=== PATIENT | female | born 1990 | race Caucasian/White ===

== ENCOUNTER 2017-09-05 19:41 | Emergency (ER) | payer SELFPAY ==
--- NOTE | 2017-09-05 19:59 | EDPHY ---
H & P Time Seen by Provider: 09/05/17 19:49 HPI/ROS: CHIEF COMPLAINT: "Fuck you, the pigs [email or web address] get me" HISTORY OF PRESENT ILLNESS: 29-year-old female arrives via police after she was found to be uncooperative at the [place] station. She is under arrest for trespassing. She is in the emergency department for medical screening prior to incarceration. The patient is unable to provide me with information regarding to her current condition. She has flight of ideas, speaks repeatedly of topics ranging from pigs to rape to fruit salad to rainbows to bases. PRIMARY CARE PROVIDER: Unknown REVIEW OF SYSTEMS: A ten point review of systems was performed and is negative with the exception of the items mentioned in the HPI PAST MEDICAL/SURGICAL HISTORY: Unknown SOCIAL HISTORY: Unknown as patient will not answer PHYSICAL EXAM 1) GENERAL: Well-developed, well-nourished, awake alert. Noncooperative, in 4 point restraints, lunges and attempts to bite me. 2) HEAD: Normocephalic, atraumatic 3) HEENT: Pupils equal, round, reactive to light bilaterally. Negative Horners. Nasopharynx, oropharynx, clear. No deformity or angulation of nose. No septal hematoma. No rhinorrhea. No oral trauma. Ears bilaterally with normal tympanic membranes. No hemotympanum. No fluid or blood in the external auditory canal. No raccoon eyes. No Lugo sign. Teeth are normally aligned with no gross malocclusion, TMJ bilaterally nontender, facial bones nontender including the zygomatic arch, maxilla mandible. 4) NECK: No cervical collar is on. Posterior cervical spine is nontender, no stepoff, no effusion. Full range of motion which does not elicit any midline cervical spine pain, no posterior midline tenderness, no step-off. 5) LUNGS: Clear to auscultation bilaterally, no wheezes, no rhonchi, no retractions.. 6) HEART: [Regular rate and rhythm, 7) ABDOMEN: No guarding, no rebound, no focal tenderness, no peritoneal signs, no signs of trauma, no ecchymosis 8) MUSCULOSKELETAL: Left forearm vertical abrasions with no signs of infection. Moving all extremities, no focal areas of tenderness, no obvious trauma. 9) BACK: No midline vertebral tenderness, no fluctuance, no step-off, no obvious trauma, no visual or palpable abnormality. 10) SKIN: No laceration. No abrasion 11) PSYCH: Awake, alert, flight of ideas, word salad, tangential thoughts DIFFERENTIAL DIAGNOSIS: In no particular orderincluding but not limited to hypoglycemia, infectious process, electrolyte abnormality, head injury and intoxicants. (Sukh Wagner Birgit) Constitutional: Initial Vital Signs Temperature (C) 36.7 C 09/05/17 19:41 Heart Rate 120 H 09/05/17 19:41 Respiratory Rate 20 09/05/17 19:41 Blood Pressure 127/89 H 09/05/17 19:41 O2 Sat (%) 100 09/05/17 19:41 O2 Delivery Mode Room Air Allergies/Adverse Reactions: Unable to Assess Allergy (Unverified 09/05/17 19:49) Home Medications: Medication Instructions Recorded Unobtainable 09/05/17 MDM/Departure - MDM Imaging Results: Imaging Impressions Head CT 09/05/17 20:22 Impression: Normal brain. No intracranial hemorrhage, mass, or swelling. Findings discussed with Emergency Department Physician Rn Clinical Review , Aj Wagner PA-C, on at September 05, 2017 at 2159. Images reviewed myself (Sukh Wagner Birgit) Medications Given: Discontinued Medications Haloperidol Lactate (Haldol Injection) 5 mg IVP EDNOW ONE Stop: 09/05/17 20:42 Last Admin: 09/05/17 20:54 Dose: 5 mg Sodium Chloride (Ns) 1,000 mls @ 0 mls/hr IV ONCE ONE PRN Reason: Wide Open Stop: 09/05/17 22:05 Last Admin: 09/05/17 22:09 Dose: 1,000 mls Nicotine (Nicoderm Cq) 14 mg TD EDNOW ONE Stop: 09/06/17 08:47 Last Admin: 09/06/17 09:19 Dose: 14 mg ED Course/Re-evaluation: 2019 hr: Patient initially presented to the emergency department for medical screening prior to incarceration. There are no reports of trauma. We have no medical records on this patient and she initially presented as a Karla Harper with no date of . I consulted with the charge nurse and Dr. Kathy Nash. I do not feel comfortable nor do I think it is appropriate to clearing this patient for incarceration at this time as she is altered, possibly psychotic, possible drug abuse, possible head injury, possible electrolyte imbalance. She is aggressive, not answering questions appropriately. After this discussion the police placed the patient on M1 hold hold, she was brought back to room 19, placed in 4 point restraints as she is physically aggressive and has already tried to bite me. Plan will be pharmacologic intervention, laboratory studies, CT imaging of the brain for altered mental status. Both I and nursing staff attempted reassurance, calming the patient, as well as other modalities and these were unsuccessful at calming the patient. Subsequently patient was kept in 4 point restraints.Patient will be kept in 4 point restraints for safety of the patient for safety of the staff as she is verbally threatening, attempting to bite and kick. 2100 hr: Re-evaluation after IV Haldol, "Can you [place] me?" 2203 hr: Re-evaluation. She is sleeping, out of 4 point restraints at this time. At this time she is able to tell me that she has been spending the past few nights at the [facility]. She denies assault. Denies illicit drug use. Awaiting urine toxicology prior to mental health evaluation Midnight: Care turned over to Dr. Jamal Asif. Patient has yet to provide urinalysis. She has been given IV hydration. She is more calm at this time. ( Sukh Wagner) The patient was evaluated and managed by the Physician Rn Clinical Review. I discussed the patient's presentation and course with the midlevel provider with them and agree with the evaluation. My co-signature indicates that I have reviewed this chart and I agree with the findings and plan of care as documented. I am the secondary supervising physician. (Kathy Nash) 0325: Drug screen positive for cocaine. No acute events overnight. Patient has been resting. Patient remains on M1 hold for acute psychosis. 0636: Patient be evaluated swing. Patient signed over to Dr. Yu at 7am shift-change (Jamal Asif) I assume care of the patient at 0700. The patient was re-evaluated at 9:20 a.m.. She was seen by the psychiatric consultation service in the case was discussed with Dr. Josue Galan. He does recommend vacated in her psychiatric hold. The patient's mental status has cleared from her presumed cocaine intoxication. She is not suicidal, homicidal or gravely disabled. She is requesting a bus past so that she to the safe house she currently is stain at. She does contract for safety. She will be discharged home with customary aftercare instructions and return precautions. (Tony Yu) - Depart Disposition: Home, Routine, Self-Care Clinical Impression: Acute psychosis, Cocaine use Condition: Good Instructions: Cocaine Abuse (ED) Additional Instructions: 1. Please follow-up with the mental health resources provided in the ED today. 2. [facility] does operate a 24/ psychiatric crisis unit located at [address] [place] [address]. The telephone number for the 24 hour crisis center is [phone]. 3. Please return to the ED if you are feeling suicidal, having thoughts of harming yourself/others or should you feel unsafe or have worsening symptoms. Referrals: [facility],. [Clinic] - As per Instructions
[2017-09-05] MEDS ORDERED: HALOPERIDOL LACT 5 MG/ML INJ ONE (20:15)
[2017-09-05 20:41] LABS: PLATELET COUNT 306 10^3/uL (150-400)
[2017-09-05] MEDS ORDERED: HALOPERIDOL LACT 5 MG/ML INJ IVP ONE (20:41)
[2017-09-05] MEDS ORDERED: NS 1,000 ML IV ONE (22:04)
[2017-09-05 23:27] VITALS: TEMP 97.7
[2017-09-06 00:20] LABS: CREATINE KINASE 204 IU/L (0-156)
[2017-09-06] MEDS ORDERED: NICOTINE 14 MG/24 HR PATCH TD ONE (08:46)
[2017-09-06 09:39] VITALS: RESP 16; O2SAT 94
[2017-09-06 09:54] VITALS: BP 105/72; PULSE 100
== END 2017-09-06 09:53 | disposition home or self-care (01) ==
LOC: EDBD 19:41
DX: F23 Brief psychotic disorder (principal); F14.90 Cocaine use, unspecified, uncomplicated
CPT/HCPCS: 80305; 96374; G0480; J1630

== ENCOUNTER 2018-03-13 11:20 | Inpatient (IN) | payer SELFPAY ==
--- NOTE | 2018-03-13 11:41 | EDPHY ---
General Time Seen by Provider: 03/13/18 11:35 Narrative: CHIEF COMPLAINT: M1 hold HISTORY OF PRESENT ILLNESS: Patient presents on an M1 hold by [facility] Department, by TOBY Rich. She is seen at time arrival. She was reportedly found wandering outside, with a retic behavior and speech. She will not provide any information to me other than pain in the left upper extremity and stating that "I am here because of police brutality." She will not provide any severity, character, associated complaints or modifying factors. PSYCHIATRIC DIAGNOSES: Will not provide PRIOR PSYCHIATRIC EVALUATIONS: Will not provide M1/DETAINER: [facility] Department at time of arrival REVIEW OF SYSTEMS: Ten systems reviewed and are negative unless otherwise noted in the HPI EXAMINATION General Appearance: Alert, no distress Head: normocephalic, atraumatic. No Lugo sign. No raccoon eyes. No outward signs of trauma. Eyes: Pupils equal and round, no conjunctival pallor or injection ENT, Mouth: Mucous membranes moist. Airway patent Neck: Normal inspection, supple, non-tender Respiratory: Lungs are clear to auscultation Cardiovascular: Regular rate and rhythm. No murmur. Good signs of perfusion extremities Gastrointestinal: Abdomen is soft and nontender Back: non-tender, no bony abnormalities Neurological: Alert to person, place and time. Will not perform further testing from a Skin: Warm and dry, no rash. Tattoos. No petechiae or purpura Extremities: A initially tender to the left shoulder and forearm, but secondary exam reveals no tenderness. Range of motion of the left upper extremity was at 1st limited, but secondary exam reveals full range of motion of the shoulder, elbow and wrist without deficit. Psychiatric: Flat affect. DIFFERENTIAL DIAGNOSES: Including but not limited to psychosis, bipolar, schizophrenia, substance abuse MDM: 11:40 a.m. M1 hold by [facility] Department for erratic behavior and possible psychosis. She was given Haldol by EMS prior to arrival. Patient does not exhibit any altered mentation to me. She will not fully cooperate and is a poor historian. She is in no acute distress. 12:20 p.m. Notified by RN, the patient is now declining the x-rays of the left upper extremity. I have re-evaluated her. She now tells me that she has no pain in the left arm. She admits to tell me that she had pain in the left arm but now states that she never did have pain. I have further examine the arm and she is able to fully range the shoulder, elbow and wrist with no deficits or pain, with symmetry to the right upper extremity. I have canceled the x-rays at this time. 1:15 p.m. Patient re-evaluated. She continues to deny any pain extremities. Her laboratory studies thus far within normal limits with exception of urinalysis which has not been provided. 3:00 p.m. Patient is still resting comfortably. Urine sample still not provided. 4:00 p.m. Still awaiting urine sample 5:15 p.m. Urine sample provided the patient has been cleared for evaluation. At this time , Dr. Merino will assume care the patient. Please see his note for final disposition. SUPERVISION: Patient was independently examined, but I discussed the case with my secondary supervising physician Dr. Saab and Dr. Merino ([facility]) Medical Decision Making: Signed out to Dr. Merino at 3:15 p.m. With urine tox pending and psychiatric evaluation after that. On a mental health hold for acute psychosis (Bonifacio Saab ) 2330 care assumed by me from Dr. Merino pending re-evaluation in the morning. 0700 patient signed out to Dr. Almaraz pending mental health evaluation this morning. There been no issues during my care this patient overnight. ( Brando Ruiz) I took over care of this patient at 7:00 a.m.. This patient is here for acute psychosis. The patient is on an M1 hold. The patient received Haldol per EMS. The in-house psychiatrist is to evaluate the patient this morning. Disposition pending. 8:40 a.m., the patient has been seen and evaluated by Behavioral Health. The patient is to be admitted to [address] [place] [address]. I have filled out the appropriate transfer paperwork. Admitting psychiatrist is Dr. Lam. The patient's remaining emergency department course under my care has been uneventful. The patient was transferred in stable condition. (Isaiah Almaraz) A 30 p.m. Patient has been evaluated by mental health. They feel that she is currently psychotic but in discussion with their psychiatrist Dr. Lam they would like to observe the patient overnight and re-evaluated the patient in the morning. (Hayes Merino) - Objective Vital Signs: Initial Vital Signs Temperature (C) 37 C 03/13/18 11:20 Heart Rate 100 03/13/18 11:20 Respiratory Rate 14 03/13/18 11:20 Blood Pressure 90/60 L 03/13/18 11:20 O2 Sat (%) 96 03/13/18 11:20 O2 Delivery Mode Room Air Allergies/Adverse Reactions: Tranquilizers Allergy (Uncoded 03/14/18 10:09) Home Medications: Medication Instructions Recorded NK [No Known Home Meds] 03/14/18 Laboratory Results: Laboratory Results 03/13/18 12:30 03/13/18 12:30 Medications Given: Ferrous Sulfate (Ferrous Sulfate) 325 mg PO DAILY ELIAS Stop: 09/11/18 17:44 Last Admin: 03/15/18 20:38 Dose: Not Given Ibuprofen (Motrin) 600 mg PO Q6HRS PRN PRN Reason: Pain, Mild Stop: 09/10/18 12:39 Last Admin: 03/15/18 15:24 Dose: 600 mg Nicotine (Nicoderm Cq) 21 mg TD DAILY ELIAS Stop: 09/11/18 08:59 Last Admin: 03/15/18 07:36 Dose: 21 mg Nicotine Polacrilex (Nicorette) 2 mg B Q1HR PRN PRN Reason: Nicotine withdrawal Stop: 09/10/18 11:19 Last Admin: 03/15/18 06:55 Dose: 2 mg Discontinued Medications Ibuprofen (Motrin) 400 mg PO Q6HRS PRN PRN Reason: Pain, Mild Stop: 09/10/18 12:39 Last Admin: 03/14/18 12:49 Dose: 400 mg Lorazepam (Ativan) 0.5 - 1 mg PO Q6HRS PRN PRN Reason: Anxiety, Able to Take PO Stop: 09/10/18 11:19 Last Admin: 03/14/18 12:49 Dose: 1 mg Nicotine (Nicoderm Cq) 21 mg TD EDNOW ONE Stop: 03/14/18 09:33 Last Admin: 03/14/18 09:54 Dose: 21 mg Sumatriptan Succinate (Imitrex) 50 mg PO ONCE ONE Stop: 03/14/18 18:16 Last Admin: 03/14/18 18:14 Dose: 50 mg Departure - Departure Disposition: [facility] IP Clinical Impression: Acute psychosis Condition: Fair
[2018-03-13 12:51] LABS: PLATELET COUNT 381 10^3/uL (150-400)
[2018-03-14] MEDS ORDERED: NICOTINE 21 MG/24 HR PATCH TD ONE (09:32)
[2018-03-14] MEDS ORDERED: LORazepam 0.5 MG TAB PO PRN (11:20)
[2018-03-14] MEDS ORDERED: OLANZapine DISINTEGR 10 MG TAB PO PRN (11:20)
[2018-03-14] MEDS ORDERED: MAG HYDROX/AL HYDROX/SIMETH 30 ML UDCUP PO PRN (11:20)
[2018-03-14] MEDS ORDERED: ACETAMINOPHEN 325 MG TAB PO PRN (11:20)
[2018-03-14] MEDS ORDERED: MAGNESIUM HYDROXIDE 30 ML UDCUP PO PRN (11:20)
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
--- NOTE | 2018-03-14 12:07 | ASMTTCLDSP ---
TLC Discharge Disposition Disposition: Answers: Admit Disposition Notes: Notes: Admit 3N. Discharge Concerns/Recommendations: Notes: In consultation with [facility] ED physician, Dinora Yip MD and on-call psychiatrist, Josue Galan MD, both concurred that pt appears to meet 27-65 criteria requiring psychiatric hospitalization as pt appears to be gravely disabled due to a mental illness condition. Pt was given (but declined to sign) the 3N prohibited belongings list while in the ED. Was patient given the Answers: Yes Inpatient Behavioral Health Prohibited Belongings List while in the ED? For inpatient Josue Galan MD admission, the following psychiatrist agreed to accept patient for admission to Behavioral Health ([facility]): Type of Hold: Answers: M1/72-hour Hold Hold initiated by: Answers: Police Date Signed: 03/14/2018 12:06 PM Electronically Signed By:Dionisio Ceron
--- NOTE | 2018-03-14 12:38 | PDMN ---
Medical Necessity Medical necessity: [facility] [id number], Schizophrenia Spectrum Disorders, Adult: Inpatient Care: 28 y/o Schizoaffective d/o, bipolar type and cannabis use d/o, severe. On M1 hold, gravely disabled.
[2018-03-14] MEDS ORDERED: IBUPROFEN 200 MG TAB PO PRN (12:40)
[2018-03-14] MEDS ORDERED: diphenhydrAMINE 50 MG CAP PO PRN (14:06)
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
[2018-03-14] MEDS: SUMAtriptan 50 MG TAB PO ONE ×3 (14:37→18:12)
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
[2018-03-14] MEDS ORDERED: SUMAtriptan 50 MG TAB PO ONE (18:15)
[2018-03-15] MEDS: NICOTINE POLACRILEX 2 MG GUM B PRN (06:55)
--- NOTE | 2018-03-15 07:17 | SOAPPROG ---
SOAP Progress Note Assessment/Plan: Assessment: PTSD; substance-induced psychotic disorder; cannabis use disorder, severe, in controlled environment; drug-seeking behavior; homelessness. Improvement since admission (see subjective/objective note). Substance-induced psychosis clearing , discharge tomorrow when hold expires. Plan: (1) Psychotropic medications: After reviewing options, risks, and benefits patient agrees to continue current medications. No other medication changes at this time as more time is needed to determine ongoing tolerability and efficacy. Plan is to continue to observe patient for response and side effects from medications, and ongoing monitoring and evaluation. (2) Review with patient informed consent and recommendations for psychotropic medication treatment listed below (3) Labs: no additional labs at this time (4) Therapy: continue milieu and group therapy (5) Further investigation including gathering information from patients relatives and review of past case records to inform treatment plan. (6) Safety/Wellness plan and follow-up outpatient appointments to be established prior to discharge. Next steps are for patient to meet with critical care educator to plan a safe discharge plan and establish outpatient services for ongoing treatment. (7) Confer with inpatient treatment team regarding treatment plan. (8) Legal status: M1 (9) Consider discharge on if patient is in stable condition, safe, and has a safe discharge plan. (10) Continue to reinforce substance abuse education and recommendations/ referrals for OP substance abuse treatment PSYCHOTROPIC MEDICATION TREATMENT INFORMED CONSENT and RECOMMENDATIONS: Review nature of condition, diagnosis, and prognosis. Review nature and purpose of psychotropic medication treatment. Review type of psychotropic medications being ordered. Review risk and benefits of psychotropic medication treatment. Review probable length of time patient will need to take medications. Review risk and benefits of not undergoing psychotropic medication treatment. Review alternative treatments to psychotropic medications. Review psychotropic medications contraindications, drug-drug interactions, side effects, and importance of reporting any side effects to a psychiatric provider or nurse during inpatient hospitalization, and upon discharge to patients psychiatric outpatient provider, primary care provider, or other health care assistant. Review importance of asking a nurse, psychiatric provider, or primary care provider any questions or problems concerning the psychotropic medications. Verify patient understands the information that has been provided, and understands, accepts, and agrees to psychotropic medications. Review patients safety plan and importance of patient to report to staff while hospitalized if patient is ever a danger to self/others, or unable to care for self, and upon discharge, the importance for patient to contact [facility] or [facility], or go to the nearest emergency room, if patient is ever a danger to self/others, or unable to care for self. Recommend that upon discharge patient establish medication management treatment with a psychiatric provider, establishes routine therapy appointments, and follow-up with primary care provider. Verify patient understands and agrees to these recommendations. 03/15/18 07:17 Subjective: Following up with patient for evaluation of psychosis and safety. Patient requests, "Can I get some Ativan or Valium, and then a bottle for when I leave the hospital?" Patient expresses the following psychiatric symptoms none. Patient reports taking medications as prescribed, and describes response to medications as okay. Patient does not report undesirable side effects from the medications, and agrees to continue current medications. Patient reports appetite as good, and reports eating all meals. Patient describes getting 8 hours of sleep. Patient states she plans to stay in the [facility] after discharge tomorrow. Objective: Vital Signs Temp Pulse Resp BP Pulse Ox 36.9 C 88 16 105/58 L 96 03/15/18 06:00 03/15/18 06:00 03/15/18 06:00 03/15/18 06:00 03/15/18 06:00 NURSING REPORT: Consulted with nursing for update on patients progress in treatment. Nurses report patient is engaged in treatment, is attending groups, slept 8 hours, expresses the following psychiatric symptoms: mild anxiety, exhibits the following psychiatric symptoms: anxiety; patient is eating all meals, patient is attending to ADLS, is taking medications as prescribed with no report of side effects, with no s/s of EPS/akathisia, and denies SI/HI, denies A/V hallucinations, and denies delusions. BUSINESS ASSOCIATE UPDATE: recommendations and referrals made for OP substance abuse treatment. SUBSTANCE ABUSE BRIEF INTERVENTION: Brief intervention regarding the risks of stimulant and cannabis abuse is provided to patient with goal to reduce the risk of harm that could result from the continued use of stimulants and cannabis , with the general aim to investigate the problem, raise awareness of problem, develop a solution with the patient, recommend a specific change or activity, and motivate the patient toward change. Assess substance abuse behavior and give supportive advice about harm reduction, recommend a reduction in hazardous/ at-risk consumption patterns, and facilitate referrals for additional specialized treatment with neonatal critical care nurse. Intermediate goal is for the patient to quit use of substances and attend NA meetings. Intervention focus on intermediate goals to allow for more immediate success in the treatment process to keep the patient motivated. Review following with patient: Cannabis use risks: Short-term use: impaired short-term memory, impaired motor coordination, altered judgement, in high doses paranoia and psychosis. Long- term use addiction, diminished life satisfaction and achievement, symptoms of chronic bronchitis, and increased risk of chronic psychosis disorders if predisposition to such disorders. In withdrawal anger, aggression irritability , anxiety and nervousness, decreased appetite or weight loss, restlessness, and sleep difficulties with strange dreams. Cocaine/stimulant use risks: Short-term : erratic and violent behavior, panic attacks, paranoia, psychosis; heart rhythm problems, heart attack; stroke, seizure, coma. Long-term: Loss of sense of smell, nosebleeds, nasal damage and trouble swallowing from snorting; infection and of bowel tissue from decreased blood flow; poor nutrition and weight loss; lung damage from smoking. Methamphetamine use risks: Short- term: insomnia, irritability, aggressive behavior, hallucinations, delusions, intellectual deficits, anxiety, depression, convulsions, damage to blood vessels in the brain causing strokes, high fevers, collapse of the circulatory system. Long-term: damage to nerve pathways, maybe irreversibly; overstimulation to dopamine impairing dopamine transport and reducing efficiency of dopamine receptors, the reward system becomes worn out, leading to inability to experience pleasure for years. MSE: The patient is a well-nourished female looking stated chronological age. Attire is appropriate, dress is casual. Grooming status is appropriate. Ambulation is independent. Gait is normal and coordinated. Posture is normal and relaxed. Eye contact is appropriate, and adequate. Motor activity is appropriate, movements are coordinated; with no involuntary movements. Attitude is cooperative and friendly. Patient appears attentive and relates well to this interviewer. Language production is spontaneous. R/R/V are normal. Articulation is clear. Patient reports mood okay with congruent affect. Patients thought process has improved, linear and logical with no signs of formal thought disorder. Associations are connected. Patient does not report suicidal/homicidal thoughts, ideas, or plans. Patient denies auditory, visual hallucinations. Patient denies delusions. Patient does not appear to be attending to internal stimuli. Patients attention and concentration are adequate. Patient is oriented to person, place. Patients insight and judgement are poor. - Time Spent With Patient Time Spent With Patient: 15 minutes, met with patient individually. - Pending Discharge Pending Discharge Within 24 Hours: Yes Pending Discharge Within 48 Hours: No Pending Discharge Date: 03/16/18 Pending Discharge Time: 11:00 ICD10 Worksheet Patient Problems: Problems Problem Status Onset Acute psychosis Acute Cannabis use disorder, severe, in controlled environment Acute Homelessness Acute Substance-induced psychotic disorder Acute PTSD (post-traumatic stress disorder) Chronic
[2018-03-15] MEDS: NICOTINE 21 MG/24 HR PATCH TD SCH (07:36)
[2018-03-15] MEDS ORDERED: NICOTINE 21 MG/24 HR PATCH TD SCH (09:00)
[2018-03-15] MEDS: IBUPROFEN 200 MG TAB PO PRN (15:24)
--- NOTE | 2018-03-15 17:44 | SOAPPROG ---
SOAP Progress Note Assessment/Plan: Assessment: Iron deficiency anemia. Ordered ferrous sulfate 325 mg p.o. Q.day. She should continue this for a month and then have followup testing of CBC and iron studies. As she has had considerable weight loss, iron deficiency might be partly nutritional; would also be worth investigating whether she has excessively heavy or frequent menstrual periods. She should follow up on these issues with a primary care provider after discharge. 03/15/18 17:42 Subjective: Reviewed labs Objective: Vital Signs Temp Pulse Resp BP Pulse Ox 36.9 C 88 16 105/58 L 96 03/15/18 06:00 03/15/18 06:00 03/15/18 06:00 03/15/18 06:00 03/15/18 06:00 ICD10 Worksheet Patient Problems: Problems Problem Status Onset Acute psychosis Acute Cannabis use disorder, severe, in controlled environment Acute Drug-seeking behavior Acute Homelessness Acute Substance-induced psychotic disorder Acute PTSD (post-traumatic stress disorder) Chronic
--- NOTE | 2018-03-15 18:01 | ASMTCMCOM ---
CM Note CM Note Notes: CC confirmed with [facility] [address] spoke to Armida the agent licensing clerk. They noted for her to go to the Court and provide them documents noting that she was in the hospital and she will have to reset the court date herself. The hospital will provide sufficient documentation that she was in the hospital during that time; however, she will have to appear in person to have the FTA warrant dismissed.* Date Signed: 03/15/2018 11:24 AM Electronically Signed By:Edgar Sellers
--- NOTE | 2018-03-15 18:20 | ASMTBHMTP ---
Master Treatment Plan Master Treatment Plan Answers: Impaired Reality for: Date: 03/15/2018 Diagnosis on Admission: Schizoaffective Disorder, Bipolar Type 295.70 (F25.0) Expected length of stay: 3-5 Reason for admission: Notes: pt is a 28-year-old female who was brought to [facility] by EMS accompanied by [employer] on a M1. Per M1 hold: Officers dispatched on the report of a female who was barefoot and wandering through stores. Upon contact, she would have moments of lucidity followed by moments of nonsensical rambling about being , on probation, having low sugar, then she would only mouth words (inaudibly). She would wander and became irate when ambulance arrived. At one point, thorowing several chairs and tables at officers. 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 Pt was uncooperative with this commercial insurance underwriter and had minimal participation. Pt stated the reason she was here in the hospital because she is claustrophobic and agoraphobic. Patient's stated presenting problems: Notes: "A situation when I felt trapped and cornered. I was given forced medications and did not respond well to it so they brought me to the unit to be stabilized". Patient's goals for treatment: Notes: "To do Yoga, relax, enjoy the facilities make the best out of the groups". Patient's strengths: Notes: "My art, my music, my honesty, my intuitive recollection of the past, my preparedness and my schooling in psychology". Identify supports outside of hospital: Notes: Mother and boyfriend. Discharge criteria: Notes: Psychotic symptoms will be reduced or eliminated with returnto baseline functioning in affect, thinking and behavior prior to discharge. Initial disposition plan/considerations: Notes: F/U with [facility]. Master Treatment Plan Required Signatures Psychiatrist signature: Answers: Psychiatrist: RN on-shift signature: Answers: RN: Patient signature: Answers: Patient: Date Signed: 03/15/2018 12:02 PM Electronically Signed By:Kimberly Vergara
--- NOTE | 2018-03-15 18:24 | ASMTCMCOM ---
CM Note CM Note Notes: CC met with ct. to develop MTP. Ct. presented with flight of ideas and grandiose thinking. Ct. signed a MAGDA for [facility] as she is planning on staying in the [facility]. Ct. missed a court hearing yesterday due to admission and will need to get to court to reschedule her court date. Date Signed: 03/15/2018 12:06 PM Electronically Signed By:Kimberly Vergara
[2018-03-15] MEDS: FERROUS SULFATE 325 MG TAB PO SCH ×2 (19:12→20:38)
[2018-03-16 06:47] VITALS: BP 111/66
--- NOTE | 2018-03-16 08:15 | BDS ---
REASON FOR ADMISSION: From the ED note dated 03/13/2018, patient presented to the ED hold by [facility] Department and arrived by EMS. The patient was seen at time of arrival at the ED. The patient was reportedly found wandering with erratic behavior and speech. The patient would not provide any information in the ED and patient reported "I am here because of police brutality." From the [facility] evaluation dated 03/13/2018, officers were dispatched to a report of a female who was barefoot and wandering through stores. Upon contact, the patient would have moments of lucidity, followed by moments of nonsensical rambling about being [place] on probation, having low blood sugar, and then she would only mouth words inaudibly. At one point, patient was throwing several chairs and tables at officers. 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 Patient was uncooperative with the [facility] elevating grader operator and had minimal participation in the evaluation. The patient reported to this OUTDOOR ADVENTURE LEADER during evaluation that she uses marijuana daily, including dabbing, and also abuses Adderall by crushing Adderall, mixing it with water, and then using it IV, and patient reported she did this prior to admission. The patient also reports a history of methamphetamine, cocaine, and heroin use. ADMITTING DIAGNOSES: Acute psychosis. Substance-induced psychotic disorder. Post-traumatic stress disorder. Cannabis use disorder, severe, in controlled environment. Stimulant use disorder, severe, in controlled environment. Homelessness. Drug-seeking behavior. Nicotine dependence with withdrawal. Migraine. ADMISSION PHYSICAL EXAM: Patient was seen by Dr. Barfield on 03/14/2018, for an inpatient internal medicine consultation for medical clearance for inpatient behavioral health stay. Dr. Barfiedl reported he saw no medical contraindications to the patient's continued stay on the inpatient behavioral health unit or to any psychiatric medications or procedures. ADMISSION LABS: From the emergency department, CBC revealed anemia, with hemoglobin of 10 and hematocrit of 31.3. Patient was microcytic. MCH, and MCHC were consistent with iron deficiency. She had enlarged RDW at 17.5. Serum chemistry showed a low anion gap at 5; otherwise, renal function and electrolytes were within normal limits. Liver functions were normal. Beta-hCG was negative for . Toxicology screen in the serum was negative for salicylates, acetaminophen, and ethyl alcohol. Toxicology screen in the urine was negative for any substances of abuse. Hemoglobin A1c was elevated on 2017, at 6.3. A fasting lipid panel from 03/13/2018, within normal limits, except LDL cholesterol calculated was elevated at 108. TSH from 03/14/2018, was within normal limits at 3.190. MAJOR PROCEDURES OR TESTS: None. HOSPITAL COURSE: The most prominent symptoms and behaviors while the patient was here were disorganized thought processes. The patient was nonsensical and tangential upon admission. At times, patient was irritable and agitated. Treatment modalities utilized were milieu and group therapy. The patient's psychosis cleared within 24 hours. The patient has improved considerably, with no signs of psychiatric symptoms and no psychiatric symptoms expressed at discharge. The patient reports she has improved since admission. She states to be in stable condition. She feels safe to discharge and she contracts for safety. Patient's response to treatment was good. There were no adverse or unexpected results of treatment. The patient was safe throughout her stay, active in treatment, attended and engaged in groups, and was appropriate with staff and other patients. The treatment team consensus is the patient is in stable condition and is safe to discharge today. CONDITION AT DISCHARGE: Patient is in stable condition and is no longer a danger to self or others, and is not gravely disabled due to mental illness. Patient is no longer in need of inpatient level of care, and can be safely and effectively treated within the community. The patients level of risk at time of discharge is low. MSE: The patient is casually dressed and with good hygiene , and looks stated age. Patient is sitting, posture is upright, and position is relaxed. Patient appears awake, alert, and responds appropriately and reasonably during interview. Patient is engaged, relates well to interviewer, and emotional facial expression is appropriate to situation and changes appropriately with topic. Patient is cooperative, makes comfortable eye contact , and movements are voluntary, deliberate, coordinated, and smooth and even with no inappropriate movements. Patient makes laryngeal sounds effortlessly and shares conversation appropriately; pace of conversation is appropriate, and stream of talking is fluent; articulation is clear and understandable; word choice is effortless and appropriate for education level; completes sentences, occasionally pausing to think; rate and volume are appropriate for interview and setting. Patient reports mood as euthymic. Patients affect is stable with full variable range, congruent with mood, and appropriate to speech and circumstances. Patient has linear and logical thinking, with no loose associations, tangential thought, thought blocking, concrete thinking, or any other signs of formal thought disorder. Patient denies suicidal and homicidal ideation, and denies hallucinations and delusions. Patient appears to be a reliable historian with sound judgement and good insight into current condition. Patient has no apparent dysfunction in recent or remote memory noted , and no evidence of gross cognitive dysfunction noted at any point during the interview. DISCHARGE DIAGNOSES: Post-traumatic stress disorder. Cannabis use disorder, severe. Stimulant use disorder, severe. Nicotine dependence with withdrawal. Homelessness. Migraine. CURRENT MEDICATIONS: After reviewing options, risks, and benefits, the patient requested a prescription for sumatriptan as patient reported history of migraines and patient, upon admission, was treated for migraine by Dr. Barfield. The patient was provided a prescription for sumatriptan. The patient also requested a prescription for nicotine 21 mg transdermal patch. The patient was provided a prescription for 30 days at time of discharge. These prescriptions were reviewed with the patient to ensure accuracy and patient understanding. FOLLOWUP: Patient was referred to outpatient substance abuse treatment. special projects coordinator reports the appropriate outpatient follow-up services have been established and outpatient appointments have been scheduled. The patient received written instructions with times and dates of outpatient follow-up appointments. The following follow-up recommendations were provided to the patient at discharge: Continue psychotropic medications as prescribed and attend appointments as scheduled. Report any side effects to a psychiatric outpatient provider, a primary care provider, or other health foster care worker. Address any questions or problems concerning the psychotropic medications with a psychiatric outpatient provider, a primary care provider, or other health foster care worker. Contact [facility] or [facility], or go to the nearest emergency room, if you are ever a danger to yourself/others, or unable to care for yourself. As soon as possible, establish a routine medication management treatment with a psychiatric provider, establish routine therapy appointments, and follow-up with a primary care provider. LEGAL COURSE: The patient was admitted on an M1 hold for involuntary hospitalization. The patient became voluntary during her stay and patient discharged today independently and voluntarily. ATTITUDE AT TIME OF DISCHARGE: The patient reports "I no longer want to use marijuana and other drugs. I have been sober for 6 years in the past. My goal is to get back to being sober again. I plan to enter both AA and NA meetings after discharge. Being here has helped me realize that I need to get help with my substance abuse issues." The patients attitude was positive at time of discharge, and patient reports looking forward to discharging today. The patient reports she feels safe to discharge, is no longer a danger to herself or others, is in stable condition, and contracts for safety. Patient states she will continue medications as prescribed, and establish medication management treatment with an outpatient provider after discharge. Patient reports she understands the information that has been provided to her, and she understands, accepts, and agrees to psychotropic medications. Patient describes internal protective factors as the coping skills she has learned while hospitalized here, and she plans to continue to practice these coping skills after discharge. LABS AND STUDIES: There were no pending labs or studies at time of discharge. ADVANCE DIRECTIVES: There were no advance directives on file, and the patient was full code during this hospitalization. The following psychotropic medication treatment informed consent and recommendations were provided to the patient at time of discharge. Patient reports she understands, accepts, and agrees to the information that has been provided. PSYCHOTROPIC MEDICATION TREATMENT INFORMED CONSENT and RECOMMENDATIONS: Review nature of condition, diagnosis, and prognosis. Review nature and purpose of psychotropic medication treatment. Review type of psychotropic medications being prescribed. Review risk and benefits of psychotropic medication treatment. Review probable length of time will need to take medications. Review risk and benefits of not undergoing psychotropic medication treatment. Review alternative treatments to psychotropic medications. Review psychotropic medications contraindications, side effects, and importance of reporting any side effects to a psychiatric provider, primary care provider, or other health foster care worker. Review importance of her asking a psychiatric provider or primary care provider any questions or problems concerning the psychotropic medications. Review importance of reporting to a psychiatric provider, primary care provider, or other health foster care worker if she plans to or becomes . Review safety plan and the importance to contact [facility] or [facility] , or go to the nearest emergency room, if ever a danger to yourself/others, or unable to care for yourself. Recommend upon discharge to establish routine medication management treatment with a psychiatric provider, establish routine therapy appointments, and follow-up with a primary care provider. Verify patient understands, accepts, and agrees to the information that has been provided. /[id number]/MODL MTDD
[2018-03-16] MEDS: IBUPROFEN 200 MG TAB PO PRN (09:20)
[2018-03-16] MEDS: FERROUS SULFATE 325 MG TAB PO SCH (09:20)
[2018-03-16] MEDS: NICOTINE POLACRILEX 2 MG GUM B PRN (09:23)
[2018-03-16] MEDS: NICOTINE 21 MG/24 HR PATCH TD SCH (09:24)
== END 2018-03-16 11:25 | disposition home or self-care (01) | DRG 885 ==
LOC: EDUNIT# → BBEH 03-14 10:35
PROVIDERS: ADMIT Psychiatry & Neurology Psychiatry; ATTEND Psychiatry & Neurology Psychiatry
DX: F23 Brief psychotic disorder (principal); F43.10 Post-traumatic stress disorder, unspecified; F15.90 Other stimulant use, unspecified, uncomplicated; G43.909 Migraine, unspecified, not intractable, without status migrainosus; Z59.0 Homelessness; F17.210 Nicotine dependence, cigarettes, uncomplicated
CPT/HCPCS: 80305; G0480